=== PATIENT | male | born 1995 | race Asian ===

== ENCOUNTER 2024-03-27 15:43 | Emergency (ER) | payer OTHER ==
[~2024-03-27] VITALS: Ht 172.7 cm; Wt 83.0 kg
[2024-03-27 15:57] VITALS: TEMP 98.6
[2024-03-27] MEDS: ACETAMINOPHEN 325 MG TABLET PO ONE (16:50)
[2024-03-27] MEDS: IBUPROFEN 400 MG TABLET PO ONE (16:50)
[2024-03-27 18:17] VITALS: BP 131/77; PULSE 99; RESP 18; O2SAT 98
== END 2024-03-27 18:18 | disposition home or self-care (01) ==
LOC: EMS 15:43
DX: S20.219A Contusion of unspecified front wall of thorax, initial encounter (principal); F20.9 Schizophrenia, unspecified; V89.2XXA Person injured in unspecified motor-vehicle accident, traffic, initial encounter; Y93.89 Activity, other specified; Y92.410 Unspecified street and highway as the place of occurrence of the external cause; Y99.8 Other external cause status
CPT/HCPCS: 71045; 99283